=== PATIENT | male | born 1995 | race Caucasian/White ===

== ENCOUNTER 2019-07-13 12:41 | Emergency (ER) | payer OTHER ==
--- NOTE | 2019-07-13 13:15 | RAD ---
Exam: One view chest 2 views left RIBS FINDINGS: 1. View chest: Normal cardiac silhouette. Lungs and pleural spaces are clear. No pneumothorax or osse ous abnormalities 2 views left RIBS: No fracture, cortical irregularity or periosteal reaction. IMPRESSION: 1. No acute cardiopulmonary process 2. No fracture.
== END 2019-07-13 13:50 | disposition home or self-care (01) ==
LOC: ERS 12:41
DX: S20.212A Contusion of left front wall of thorax, initial encounter (principal); J45.909 Unspecified asthma, uncomplicated; F17.220 Nicotine dependence, chewing tobacco, uncomplicated; W01.0XXA Fall on same level from slipping, tripping and stumbling without subsequent striking against object, initial encounter

== ENCOUNTER 2019-11-13 12:22 | Emergency (ER) | payer SELFPAY ==
[2019-11-13 14:34] LABS: #Eosinphils 0.5 thou/uL (0.0-0.7); #Lymphocytes 1.5 thou/uL (1.20-3.40); #Monocytes 0.6 thou/uL (0.11-0.59); #Neutrophils 3.3 thou/uL (1.40-6.50); %Basophils 0.6 % (0.0-1.0); %Eosinophils 8.6 % (0.0-10.0); %Lymphocytes 24.6 % (21.0-51.0); %Monocytes 10.7 % (0.0-10.0); %Neutrophils 55.5 % (42.0-75.0); Hemoglobin 15.4 g/dL (14.0-18.0); Mean Corpuscular HGB CONC 34.3 g/dL (32.0-36.0); Mean Corpuscular Hemoglobin 30.4 pg (27.0-31.0); Mean Corpuscular Volume 88.4 fL (78.0-98.0); Mean Platelet Volume 7.2 fL (7.4-10.4); Platelet Count 277 thou/uL (130-400); RBC Distribution Width 12.1 % (11.5-14.5); Red Blood Cell (RBC) Count 5.07 mill/uL (4.70-6.10); White Blood Cell (WBC) Count 5.9 thou/uL (4.8-10.8)
[2019-11-13 14:41] LABS: PTT 28.6 SEC (22.9-36.1)
[2019-11-13 14:55] LABS: ALT (SGPT) 21 U/L (8-55); AST (SGOT) 21 U/L (5-34); Albumin 4.9 g/dL (3.5-5.0); Alkaline Phosphatase 82 U/L (40-110); Anion Gap 12 mmol/L (10-20); BUN (Urea Nitrogen) 14 mg/dL (8.9-20.6); Bilirubin, Total 0.9 mg/dL (0.2-1.2); Calc. Creatinine Clearance 0 mL/min (70-130); Calcium 9.6 mg/dL (7.8-10.44); Carbon Dioxide 29 mmol/L (22-29); Chloride 103 mmol/L (98-107); Estimated GFR-MDRD 77; Globulin 2.5 g/dL (2.4-3.5); Glucose 99 mg/dL (70-105); Protein, Total 7.4 g/dL (6.0-8.3); Sodium 140 mmol/L (136-145)
== END 2019-11-13 15:52 | disposition home or self-care (01) ==
LOC: ERS 12:22
DX: T63.001A Toxic effect of unspecified snake venom, accidental (unintentional), initial encounter (principal); S81.832A Puncture wound without foreign body, left lower leg, initial encounter; J45.909 Unspecified asthma, uncomplicated; F17.220 Nicotine dependence, chewing tobacco, uncomplicated
CPT/HCPCS: 36415; 80053; 85025; 85610; 85730; 99283